=== PATIENT | male | born 1990 | race Caucasian/White ===

== ENCOUNTER 2020-09-28 18:23 | Emergency (ER) | payer SELFPAY ==
[2020-09-28 18:34] VITALS: BP 142/107; PULSE 75; RESP 18; TEMP 36.3; O2SAT 97; BMI 31.3
--- NOTE | 2020-09-28 19:07 | XRR_ITS ---
PROCEDURE INFORMATION: Exam: XR Right Shoulder Exam date and time: 09/28/2020 7:08 PM Age: 30 years old Clinical indication: Injury or trauma; Fall; Blunt trauma (contusions or hematomas); Shoulder; Left; Injury date: 09/28/2020; Additional info: Dislocation TECHNIQUE: Imaging protocol: XR Right shoulder. Views: 2 or more views. COMPARISON: No relevant prior studies available. FINDINGS: Bones/joints: There is widening of the acromioclavicular joint space measuring 13 mm. Normal coracoclavicular joint space. Findings are consistent with a Robin type 2 acromioclavicular joint sprain. Soft tissues: Normal. XR/XR shoulder RT min 2V* [id number] IMPRESSION: Type 2 acromioclavicular joint sprain.
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
[2020-09-28 19:27] VITALS: RESP 16; O2SAT 98
[2020-09-28] MEDS: fentaNYL 50 mcg/mL INJ 2mL IVP (19:27)
[2020-09-28 19:31] VITALS: BP 134/78; PULSE 84; RESP 16; O2SAT 97
[2020-09-28 20:27] VITALS: BP 136/71; PULSE 88; RESP 16; O2SAT 97
--- NOTE | 2020-09-30 11:06 | DCPLANNER ---
fuel manager had message to schedule a follow up appointment for patient with ortho. fuel manager called the ortho clinic, spoke with Katherine, gave clinic patients information. fuel manager was told that patients information would be printed and reviewed. Clinic will call patient with appointment information.
--- NOTE | 2020-10-01 08:21 | DCPLANNER ---
Patient has a follow up appointment scheduled for , October 03, [address] 11:[address] Burt. Clinic will call patient with appointment information.
== END 2020-09-28 20:28 | disposition home or self-care (01) ==
PROVIDERS: Emergency Provider Nurse Practitioner Family
DX: S43.101A Unspecified dislocation of right acromioclavicular joint, initial encounter (principal); V86.56XA Driver of dirt bike or motor/cross bike injured in nontraffic accident, initial encounter
CPT/HCPCS: 12345; 73030; 96374; 99283; J3010